=== PATIENT | female | born 1965 | race Caucasian/White ===

== ENCOUNTER 2017-05-28 12:40 | Emergency (ER) | payer BC, OTHER ==
--- NOTE | 2017-05-28 13:33 | EDPHY ---
H & P Time Seen by Provider: 05/28/17 12:50 HPI/ROS: CHIEF COMPLAINT: Right eyebrow lack HISTORY OF PRESENT ILLNESS: Patient is a 51-year-old female who presents emergency department after having a mechanical fall. Patient states she tripped over her ski boots. She struck her head. She did not lose consciousness. No preceding lightheadedness or dizziness. She has had no nausea vomiting. No focal deficits. No visual change. REVIEW OF SYSTEMS: Negative Past Medical/Surgical History: Noncontributory Smoking Status: Never smoked Physical Exam: Vitals noted General Appearance: Alert and no distress. Head: Pupils equal. Normal. Patient has a 3 cm laceration over her right brow. This is at the superior margin of her eyebrow. It is horizontal. No visible foreign body. Neck: No C-spine tenderness. Nexus negative Respiratory: No respiratory distress. Cardiac: regular rate and rhythm. Extremities: Full range of motion, normal appearing. Skin: No rashes or lesions. NEURO/PSYCH: Higher functions: Alert and Oriented x3. Normal speech and cognition. Normal mood and affect. Cranial nerves: Normal as tested. Cerebellar: Normal as tested. Good finger to nose, good [id number], normal gait. Peripheral exam: Normal motor exam. Normal sensation. Constitutional: Initial Vital Signs Temperature (C) 36.4 C 05/28/17 12:40 Heart Rate 84 05/28/17 12:40 Respiratory Rate 16 05/28/17 12:40 Blood Pressure 120/81 H 05/28/17 12:40 O2 Sat (%) 97 05/28/17 12:40 O2 Delivery Mode Room Air Allergies/Adverse Reactions: No Known Allergies Allergy (Unverified 05/28/17 12:45) Home Medications: Medication Instructions Recorded NK [No Known Home Meds] 05/28/17 Medical Decision Making ED Course/Re-evaluation: In the emergency department I discussed possible etiologies with the patient. I answered all her questions. Patient consented to have her laceration cleaned and repaired. Procedure: Laceration repair. Verbal consent was obtained from the patient. The 3 cm laceration on the right brow was anesthetized in the usual fashion. The wound was irrigated, draped and explored to its base with a gloved finger. There were no deep structures involved. The wound was repaired with [2 deep 6 0 Vicryl sutures]. The wound was closed with 6 0 nylon simple sutures. The procedure was performed by myself. Differential Diagnosis: My differential includes but is not limited to laceration, foreign body, fracture, subarachnoid hemorrhage, subdural hematoma, epidural hematoma Departure - Departure Disposition: Home, Routine, Self-Care Clinical Impression: Eyebrow laceration Qualifiers: Encounter type: initial encounter Laterality: right Qualified Code(s): S01.111A - Laceration without foreign body of right eyelid and periocular area, initial encounter Condition: Good Instructions: Laceration (ED), Care For Your Stitches (ED) Additional Instructions: Your sutures should come out in 8 days. Return to the emergency department to have your sutures removed. Return if you increasing redness, discharge, pain, fever or any other concerns.
[2017-05-28 13:42] VITALS: BP 123/85
== END 2017-05-28 13:58 | disposition home or self-care (01) ==
PROC: 0HQ1XZZ Repair Face Skin, External Approach (ICD-10-PCS; principal; 2017-05-28)
DX: S01.111A Laceration without foreign body of right eyelid and periocular area, initial encounter (principal); W01.198A Fall on same level from slipping, tripping and stumbling with subsequent striking against other object, initial encounter